=== PATIENT | male | born 1970 | race Caucasian/White ===

== ENCOUNTER 2024-11-14 12:23 | Inpatient (IN) | payer BC, SELFPAY ==
[2024-11-14] MEDS: OLANZapine INTRAMUSCULAR 10MG VIAL IM ONE (13:17)
[2024-11-14] MEDS: LORazepam 2 MG/ML 1ML VIAL IM ONE (13:17)
[2024-11-14 13:18] LABS: HEMATOCRIT 49.5 % (42.0-52.0); HEMOGLOBIN 16.6 g/dl (13.5-17.5); MEAN CORPUSCULAR HEMOGLOBIN 31.5 pg (27.0-33.0); MEAN CORPUSCULAR HGB CONC 33.5 g/dl (32.0-36.5); MEAN CORPUSCULAR VOLUME 93.9 fl (80.0-96.0); PLATELET COUNT, AUTOMATED 295 10^3/uL (150-450); RED BLOOD COUNT 5.27 10^6/uL (4.30-6.10)
[2024-11-14 13:48] LABS: ETHYL ALCOHOL (ETHANOL) 0.005 % (0.000-0.010)
[2024-11-14 13:50] LABS: ALBUMIN 4.5 G/DL (3.2-5.2); ALKALINE PHOSPHATASE 85 U/L (40-129); ALT/SGPT 31 U/L (7.0-40); AST/SGOT 25 U/L (<34); BILIRUBIN,DIRECT 0.2 MG/DL (<0.4); BILIRUBIN,TOTAL 0.6 MG/DL (0.3-1.2); BLOOD UREA NITROGEN 15 MG/DL (9-23); CALCIUM LEVEL 9.2 MG/DL (8.5-10.1); CARBON DIOXIDE LEVEL 19 MMOL/L (20-31); CHLORIDE LEVEL 106 MMOL/L (98-107); CREATININE FOR GFR 0.86 MG/DL (0.70-1.30); GLOMERULAR FILTRATION RATE > 90.0 (>56); GLUCOSE, FASTING 177 MG/DL (60-100); POTASSIUM SERUM 3.8 MMOL/L (3.5-5.1); SALICYLATE LEVEL < 3.0 MG/DL (<30); SODIUM LEVEL 140 MMOL/L (136-145); TOTAL PROTEIN 7.6 G/DL (5.7-8.2)
[2024-11-14 13:57] LABS: THYROID STIMULATING HORMONE 2.355 uIU/ML (0.55-4.78)
[2024-11-14 14:24] LABS: AMPHETAMINES LEVEL URINE NEGATIVE (NEGATIVE)
[2024-11-14 14:25] LABS: BARBITURATES URINE NEGATIVE (NEGATIVE); BENZODIAZEPINES URINE NEGATIVE (NEGATIVE); COCAINE METABOLITE URINE NEGATIVE (NEGATIVE); METHADONE URINE NEGATIVE (NEGATIVE)
[2024-11-14 14:26] LABS: OPIATES URINE NEGATIVE (NEGATIVE); PHENCYCLIDINE URINE NEGATIVE (NEGATIVE)
[2024-11-14 14:44] LABS: CANNABINOIDS URINE POSITIVE (NEGATIVE)
[2024-11-14] MEDS ORDERED: HOME MED LIST COMPLETE! XX SCH (15:40)
[2024-11-14] MEDS ORDERED: traZODone 50 MG TAB PO PRN (20:20)
[2024-11-14] MEDS ORDERED: ACETAMINOPHEN 325 MG TAB PO PRN (20:20)
[2024-11-14] MEDS ORDERED: diphenhydrAMINE 25MG CAP PO PRN (20:20)
[2024-11-14] MEDS ORDERED: MOM 30ML SUSPENSION UDC PO PRN (20:20)
[2024-11-14] MEDS ORDERED: IBUPROFEN 400MG TAB PO PRN (20:20)
[2024-11-14] MEDS ORDERED: MAALOX 30 ML SUSP *UDC PO PRN (20:20)
[2024-11-14] MEDS ORDERED: OLANZapine ORAL DISINTEGRATING TAB 5MG PO PRN (20:20)
[2024-11-15] MEDS: OLANZapine 5 MG TAB PO SCH (09:00)
[2024-11-15] MEDS: NICOTINE POLACRILEX 2 MG GUM PO PRN (14:11)
[2024-11-15 14:35] VITALS: BP 133/68; TEMP 97.8; O2SAT 97
[2024-11-15] MEDS: PALIPERIDONE 3MG ER TAB PO SCH (20:24)
[2024-11-16 06:45] LABS: HEMATOCRIT 51.3 % (42.0-52.0); HEMOGLOBIN 17.3 g/dl (13.5-17.5); MEAN CORPUSCULAR HEMOGLOBIN 31.5 pg (27.0-33.0); MEAN CORPUSCULAR HGB CONC 33.7 g/dl (32.0-36.5); MEAN CORPUSCULAR VOLUME 93.4 fl (80.0-96.0); PLATELET COUNT, AUTOMATED 291 10^3/uL (150-450); RED BLOOD COUNT 5.49 10^6/uL (4.30-6.10); WHITE BLOOD COUNT 13.6 10^3/uL (4.0-10.0)
[2024-11-16 06:51] VITALS: BP 135/63; TEMP 98.5; O2SAT 96
[2024-11-16 07:10] LABS: BLOOD UREA NITROGEN 14 MG/DL (9-23); CALCIUM LEVEL 9.1 MG/DL (8.5-10.1); CARBON DIOXIDE LEVEL 25 MMOL/L (20-31); CHLORIDE LEVEL 107 MMOL/L (98-107); CREATININE FOR GFR 0.83 MG/DL (0.70-1.30); GLOMERULAR FILTRATION RATE > 90.0 (>56); GLUCOSE, FASTING 106 MG/DL (60-100); POTASSIUM SERUM 3.9 MMOL/L (3.5-5.1); SODIUM LEVEL 142 MMOL/L (136-145)
[2024-11-16 15:06] VITALS: TEMP 97.1; O2SAT 97
[2024-11-16 15:10] LABS: APPEARANCE, URINE CLEAR (CLEAR); BACTERIA, URINE AUTO NEGATIVE (NEGATIVE); BILIRUBIN, URINE AUTO NEGATIVE (NEGATIVE); BLOOD, URINE BLOOD NEGATIVE (NEGATIVE); COLOR, URINE YELLOW (YELLOW); GLUCOSE, URINE (UA) AUTO NEGATIVE (NEGATIVE); KETONE, URINE AUTO TRACE mg/dL (NEGATIVE); LEUKOCYTE ESTERASE, URINE AUTO NEGATIVE (NEGATIVE); MUCUS, URINE SMALL (NEGATIVE); NITRITE, URINE AUTO NEGATIVE (NEGATIVE); PROTEIN, URINE AUTO NEGATIVE (NEGATIVE); RBC, URINE AUTO 0 /HPF (0-3); SPECIFIC GRAVITY URINE AUTO 1.009 (1.002-1.035); SQUAMOUS EPITHELIAL CELL UR AU 0 /HPF (0-6); UROBILINOGEN, URINE AUTO 0.2 mg/dL (0.0-2.0); WBC, URINE AUTO 0 /HPF (0-3)
[2024-11-16 15:53] VITALS: BP 143/82
[2024-11-17 06:30] VITALS: BP 141/64; TEMP 97.4; O2SAT 99
[2024-11-17 16:21] VITALS: BP 122/85; TEMP 98.2; O2SAT 98
[2024-11-17] MEDS: PALIPERIDONE 3MG ER TAB PO SCH (20:30)
[2024-11-18 07:06] VITALS: BP 127/62; TEMP 98.5; O2SAT 96
[2024-11-18 16:07] VITALS: BP 135/60; TEMP 97.9; O2SAT 97
[2024-11-19 07:02] VITALS: BP 118/63; TEMP 98; O2SAT 98
[2024-11-19] MEDS ORDERED: PALI1TAB2 PO (11:54)
== END 2024-11-19 15:40 | disposition home or self-care (01) | DRG 751 ==
LOC: M ED 12:23 → M ED INP 20:17 → M PSY 23:01
PROVIDERS: ADMIT Psychiatry & Neurology Neurology; ATTEND Psychiatry & Neurology Neurology
DX: F29 Unspecified psychosis not due to a substance or known physiological condition (principal); F31.9 Bipolar disorder, unspecified; F12.90 Cannabis use, unspecified, uncomplicated; E66.9 Obesity, unspecified